=== PATIENT | male | born 1965 | race Caucasian/White ===

== ENCOUNTER → 2023-12-07 13:56 | Outpatient (REF) | payer OTHER, SELFPAY | LOC: HWEVLT 13:56 | PROVIDERS: ATTENDING PHYSICIAN Radiology Diagnostic Radiology | DX: I83.893 Varicose veins of bilateral lower extremities with other complications (principal) | CPT/HCPCS: 93970 ==

== ENCOUNTER → 2024-01-09 11:29 | Outpatient (REF) | payer OTHER, SELFPAY | LOC: HWEVLT 11:29 | PROVIDERS: ATTENDING PHYSICIAN Radiology Vascular & Interventional Radiology | DX: I83.891 Varicose veins of right lower extremity with other complications (principal) | CPT/HCPCS: 93971 ==

== ENCOUNTER → 2024-01-25 09:29 | Outpatient (REF) | payer OTHER, SELFPAY | LOC: HWEVLT 09:29 | PROVIDERS: ATTENDING PHYSICIAN Radiology Diagnostic Radiology | DX: I83.891 Varicose veins of right lower extremity with other complications (principal) | CPT/HCPCS: 36478; C1769 ==

== ENCOUNTER → 2024-02-06 12:59 | Outpatient (REF) | payer OTHER, SELFPAY | LOC: HWEVLT 12:59 | PROVIDERS: ATTENDING PHYSICIAN Radiology Diagnostic Radiology | DX: I83.891 Varicose veins of right lower extremity with other complications (principal) | CPT/HCPCS: 93971 ==